=== PATIENT | female | born 1985 | race Caucasian/White ===

== ENCOUNTER 2017-03-29 22:02 | Emergency (ER) | payer MEDICAID ==
[~2017-03-29] VITALS: Ht 160 cm; Wt 49.9 kg
[2017-03-29 22:15] VITALS: BP 118/87
[2017-03-30] MEDS: IBUPROFEN 600 MG TAB PO ONE (00:11)
== END 2017-03-30 00:27 | disposition home or self-care (01) ==
LOC: ER 22:04
DX: R51 Headache (principal); R52 Pain, unspecified; F17.210 Nicotine dependence, cigarettes, uncomplicated; V49.49XA Driver injured in collision with other motor vehicles in traffic accident, initial encounter; Y93.89 Activity, other specified; Y99.8 Other external cause status; Y92.411 Interstate highway as the place of occurrence of the external cause
CPT/HCPCS: 70450